=== PATIENT | male | born 1960 | race American Indian/Alaskan Native ===

== ENCOUNTER 2022-03-08 09:50 | Emergency (ER) | payer SELFPAY ==
[2022-03-08 10:32] VITALS: BP 173/102
--- NOTE | 2022-03-08 10:34 | Emergency Department Report ---
Blank Doc - Documentation Documentation: 61-year-old male that presents with dizziness and nausea. Patient that has not been taking his blood pressure medication. Symptoms started today. Neuro exam unremarkable. 1- This is a initial triage assessment/medical screening only. Full assessment and work-up will be completed once the patient is in proper hospital gown, ED bed and in a private room setting. This initial assessment/diagnostic orders/clinical plan/ treatment(s) is/are subject to change based on pt's health status, clinical progression and re-assessment by fellow clinical providers in the ED. Further treatment and workup at subsequent clinical providers discretion. Patient/guardians urged not to elope from ED as their condition may be serious if not clinically assessed and managed. 2-labs 3-EKG The patient was evaluated in the emergency department for symptoms described in the history of present illness. He/she was evaluated in the context of the global COVID-19 pandemic, which necessitated consideration that the patient might be at risk for infection with the virus that causes COVID-19. Institutional protocols and algorithms that pertain to the evaluation of patients at risk for COVID-19 are in a state of rapid change based on information released by regulatory bodies including the CDC and federal and state organizations. These policies and algorithms were followed during the patient's care in the emergency department. Please note that these policies, procedures and recommendations changed on a rapid basis.
[2022-03-08 11:07] LABS: Basophils % (Auto) 0.7 % (0.0-1.8); Eosinophils # (Auto) 0.2 K/mm3 (0.0-0.4); Eosinophils % (Auto) 2.8 % (0.0-4.3); Hematocrit 45.7 % (35.5-45.6); Hemoglobin 14.7 gm/dl (11.8-15.2); Lymphocytes # (Auto) 1.1 K/mm3 (1.2-5.4); Lymphocytes % (Auto) 19.4 % (13.4-35.0); Mean Corpuscular HGB Conc 32 % (32-34); Mean Corpuscular Volume 84 fl (84-94); Monocytes # (Auto) 0.5 K/mm3 (0.0-0.8); Monocytes % (Auto) 8.4 % (0.0-7.3); Platelet Count 256 K/mm3 (140-440); Red Blood Count 5.45 M/mm3 (3.65-5.03); Red Cell Distribution Width 14.6 % (13.2-15.2)
[2022-03-08 11:18] LABS: Alanine Aminotransferase 18 units/L (7-56); Albumin 4.6 g/dL (3.9-5); Blood Urea Nitrogen 21 mg/dL (9-20); Calcium 9.8 mg/dL (8.4-10.2); Hemolysis Index 31
[2022-03-08 11:29] LABS: BUN/Creatinine Ratio 30
[2022-03-08] MEDS ORDERED: MECLIZINE 25 MG TAB PO ONE (11:56)
[2022-03-08] MEDS ORDERED: ONDANSETRON 4 MG/2 ML INJ IV ONE (11:56)
--- NOTE | 2022-03-08 11:59 | Emergency Department Report ---
ED Dizziness HPI - General Chief Complaint: High BP Stated Complaint: HIGH BLOOD PRESSURE/DIZZY Time Seen by Provider: 03/08/22 10:29 Source: patient Mode of arrival: Ambulatory Limitations: No Limitations - History of Present Illness Initial Comments: 61-year-old male with history of hypertension presents to the emergency department complaining of dizziness and nausea for 5 days. Patient reports mild frontal headache, as well, and states that he is concerned that he may be "stroking out". Patient denies chest pain, near syncope, abdominal pain, fever, shortness of breath, or any other symptoms. Patient was seen at the [place] emergency department, 2 days ago, and was found to have a blood pressure 193/104, then. However, when his blood pressure improved, his symptoms did not resolve. Patient states that he had a EKG and blood work performed at the [place], but did not have a CT scan of his head done. Patient was given a prescription for antihypertensive, there. Patient does not have a primary care doctor, yet. Patient reports his symptoms get worse when he moves his head, but denies any known alleviating factors. MD Complaint: dizziness - Related Data Previous Rx's Medication Instructions Recorded Last Taken Type Meclizine [Antivert] 25 mg PO TID PRN #10 03/08/22 Unknown Rx Ondansetron [Zofran Odt] 4 mg PO Q8HR #7 tab.rapdis 03/08/22 Unknown Rx Allergies Allergy/AdvReac Type Severity Reaction Status Date / Time No Known Allergies Allergy Unverified 03/08/22 10:32 ED Review of Systems ROS: Stated complaint: HIGH BLOOD PRESSURE/DIZZY Other details as noted in HPI Comment: All other systems reviewed and negative Constitutional: denies: chills, fever, weakness Eyes: denies: eye pain, eye discharge, vision change ENT: denies: ear pain, throat pain, congestion Respiratory: denies: cough, shortness of breath, SOB with exertion, wheezing Cardiovascular: denies: chest pain, palpitations Endocrine: no symptoms reported Gastrointestinal: nausea. denies: abdominal pain, vomiting, diarrhea, melena Genitourinary: denies: urgency, dysuria Musculoskeletal: denies: back pain, joint swelling, arthralgia Skin: denies: rash, lesions Neurological: headache, vertigo. denies: weakness, paresthesias Psychiatric: denies: anxiety, depression Hematological/Lymphatic: denies: easy bleeding, easy bruising ED Past Medical Hx - Past Medical History Hx Hypertension: Yes - Medications Home Medications: Home Medications Medication Instructions Recorded Confirmed Last Taken Type Meclizine [Antivert] 25 mg PO TID PRN #10 03/08/22 Unknown Rx Ondansetron [Zofran Odt] 4 mg PO Q8HR #7 tab.rapdis 03/08/22 Unknown Rx ED Physical Exam - General Limitations: No Limitations General appearance: alert, in no apparent distress - Head Head exam: Present: atraumatic, normocephalic - Eye Eye exam: Present: normal appearance, PERRL, EOMI. Absent: nystagmus - ENT ENT exam: Present: mucous membranes moist - Neck Neck exam: Present: normal inspection, full ROM, other (No bruits) - Respiratory Respiratory exam: Present: normal lung sounds bilaterally. Absent: respiratory distress - Cardiovascular Cardiovascular Exam: Present: regular rate, normal rhythm. Absent: systolic murmur, diastolic murmur, rubs, gallop - GI/Abdominal GI/Abdominal exam: Present: soft, normal bowel sounds. Absent: distended, tenderness, guarding, rebound - Rectal Rectal exam: Present: deferred - Extremities Exam Extremities exam: Present: normal inspection, full ROM. Absent: tenderness - Back Exam Back exam: Present: normal inspection - Neurological Exam Neurological exam: Present: alert, oriented X3, CN II-XII intact, normal gait, reflexes normal. Absent: motor sensory deficit - Psychiatric Psychiatric exam: Present: normal affect, normal mood - Skin Skin exam: Present: warm, dry, intact, normal color. Absent: rash ED Course Vital Signs 03/08/22 10:26 Temperature 98.3 F Pulse Rate 78 Respiratory 18 Rate Blood Pressure 173/102 [Left] O2 Sat by Pulse 99 Oximetry - Reevaluation(s) Reevaluation #1: 03/08/22 15:22 Patient have resolution of his nausea, but states that he is still dizzy, after his treatment. Patient blood pressure had greatly improved to 146/81. ED Medical Decision Making - Lab Data Result diagrams: 03/08/22 10:46 03/08/22 10:46 - Medical Decision Making Hypertensive emergency central or peripheral vertigo, carotid stenosis, intracranial hemorrhage, vertebrobasilar insufficiency, stroke Critical care attestation.: If time is entered above; I have spent that time in minutes in the direct care of this critically ill patient, excluding procedure time. ED Disposition Clinical Impression: Dizziness, Nausea Hypertension Qualifiers: Hypertension type: primary hypertension Qualified Code(s): I10 - Essential (primary) hypertension Disposition: 01 HOME / SELF CARE / HOMELESS Is pt being admited?: No Does the pt Need Aspirin: No Condition: Stable Instructions: Nausea, Adult, Dizziness, [id number], Hypertension, Adult, Hypertension (ED) Prescriptions: Meclizine [Antivert] 25 mg PO TID PRN #10 PRN Reason: Vertigo Ondansetron [Zofran Odt] 4 mg PO Q8HR #7 tab.rapdis Referrals: CHAITANYA GARCIA MD [Primary Care Provider] - 3-5 Days Time of Disposition: 13:40
--- NOTE | 2022-03-08 12:32 | Cat Scan Report ---
CT HEAD WITHOUT CONTRAST INDICATION / CLINICAL INFORMATION: dizziness intractable. TECHNIQUE: All CT scans at this location are performed using CT dose reduction for ALARA by means of automated e xposure control. COMPARISON: None available. FINDINGS: HEMORRHAGE: No evidence of intracranial hemorrhage or extra-axial fluid collection. EXTRA-AXIAL SPACES: Cortical sulci, sylvian fissures and basilar cisterns have an unremarkable appear ance. 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 The third and lateral ventricles are otherwise normal size an d configuration. CEREBRAL PARENCHYMA: No areas of abnormal brain parenchymal attenuation are identified. There is no i ndication of recent infarction. MIDLINE SHIFT OR HERNIATION: There is no mass effect. CEREBELLUM / BRAINSTEM: Brainstem and cerebellum have an unremarkable appearance. MIDLINE STRUCTURES:No abnormalities of the pituitary gland or pineal region are identified. INTRACRANIAL VESSELS:No abnormalities are identified on this noncontrast head CT. ORBITS: visualized portions of the orbits have an unremarkable appearance. SOFT TISSUES of HEAD: No significant abnormality. CALVARIUM: Evaluation of bone windows reveals no abnormalities. PARANASAL SINUSES / MASTOID AIR CELLS: Retention cyst or polyp is identified at the base of the right maxillary sinus. Visualized portions of the paranasal sinuses are otherwise free from inflammatory m ucosal disease. Mastoid air cells are normally pneumatized. ADDITIONAL FINDINGS: None. IMPRESSION: 1. No significant intracranial abnormality. Signer Name: Jd Tan MD Signed: 03/08/2022 12:27 PM Workstation Name: [id number]
--- NOTE | 2022-03-09 09:57 | Electrocardiograph Report ---
[facility] Test Date: 2022-03-08 Test Time: 10:34:57 Pat Name: MATTHEW CAMPA Department: Room: Gender: M [employer] [place]: I[place]ES[place] : 1960 Requested By: GARDENIA GARCIA Order Number: [id number] Reading MD: Luis Underwood Measurements Intervals Stanley Rate: 77 P: 41 MO: 201 QRS: -4 QRSD: 104 T: 29 QT: 390 QTc: 442 Interpretive Statements Sinus rhythm No previous ECG available for comparison Electronically Signed On 03-09-2022 9:57:53 EDT by uLis Underwood
== END 2022-03-08 14:06 | disposition home or self-care (01) ==
LOC: ED 09:50
DX: R42 Dizziness and giddiness (principal); R11.0 Nausea; I10 Essential (primary) hypertension
CPT/HCPCS: 36415; 70450; 80053; 84484; 85025; 93005; 96374; 99284; J2405